=== PATIENT | female | born 1980 | race Asian ===

== ENCOUNTER 2020-07-24 22:49 | Emergency (ER) | payer OTHER ==
[~2020-07-24] VITALS: Ht 152.4 cm; Wt 50.0 kg
[2020-07-24 23:20] LABS: CLARITY URINE CLEAR (CLEAR); COLOR URINE YELLOW (YELLOW); KETONES URINE 3+ (NEGATIVE); LEUKOCYTE ESTERASE URINE NEGATIVE (NEGATIVE); NITRITE URINE NEGATIVE (NEGATIVE); OCCULT BLOOD URINE TRACE (NEGATIVE); PH URINE 7.5 (4.5-8.0); PROTEIN URINE NEGATIVE (NEGATIVE); SPECIFIC GRAVITY URINE 1.017 (1.005-1.030); UROBILINOGEN URINE 0.2 E.U./dL (0.2-1.0)
[2020-07-24] MEDS ORDERED: ONDANSETRON HCL 4MG/2ML INJ IV STA (23:36)
[2020-07-24] MEDS ORDERED: MORPHINE SULFATE 4 MG/ML CPJ (NOT FOR IM USE) IV STA (23:36)
[2020-07-24] MEDS ORDERED: SODIUM CHLORIDE 0.9% 1,000 ML IV ONE (23:45)
[2020-07-25 00:24] LABS: CHLORIDE 107 mEq/L (98-107)
[2020-07-25 00:25] LABS: PROTHROMBIN TIME 10.5 sec (9.6-11.0)
[2020-07-25 00:26] LABS: HCG SCREEN NEGATIVE; HEMATOCRIT. 42.4 % (36.0-48.0); HEMOGLOBIN. 14.1 g/dL (12.0-16.0); MEAN CORPUSCULAR HEMOGLOBIN 31.1 pg (28.0-32.0); MEAN CORPUSCULAR VOLUME 93.5 fL (81.0-99.0); MEAN PLATELET VOLUME 9.7 fl (7.4-10.4); PLATELET 219 x1000/uL (130-400); RED BLOOD CELL COUNT 4.53 mill/uL (4.2-5.4); RED CELL DISTRIBUTION WIDTH 12.5 % (11.6-14.6)
[2020-07-25 00:29] LABS: ETHANOL BLOOD < 10 mg/dL
[2020-07-25 01:18] LABS: PLATELET ESTIMATE NORMAL
[2020-07-25] MEDS ORDERED: IOHEXOL-300 100 ML BOTTLE ONE (01:20)
[2020-07-25] MEDS ORDERED: FENTANYL CITRATE/PF 50MCG/ML 2ML VIAL IV ONE (01:30)
[2020-07-25] MEDS ORDERED: DEXT 5%/0.9% NACL 1,000 ML IV ONE (01:30)
[2020-07-25] MEDS ORDERED: KETOROLAC 15MG/ML VIAL IV ONE (02:15)
[2020-07-25] MEDS ORDERED: ONDA4TAB5 MT (02:57)
[2020-07-25 03:49] VITALS: BP 108/64
== END 2020-07-25 03:53 | disposition home or self-care (01) ==
LOC: ER 22:49
DX: N13.2 Hydronephrosis with renal and ureteral calculous obstruction (principal); J45.909 Unspecified asthma, uncomplicated; E86.0 Dehydration; Z79.899 Other long term (current) drug therapy
CPT/HCPCS: 36415; 74177; 80053; 80320; 81003; 81025; 83605; 83690; 84484; 84703; 85025; 85610; 86850; 86900; 86901; 93005; 96361; 96374; 96375; 99285; J1885; J2270; J2405; J3010; J7030; J7042; Q9967; G0480